=== PATIENT | male | born 1950 | race Caucasian/White ===

== ENCOUNTER 2017-03-17 13:42 | Inpatient (IN) | payer MEDICARE, OTHER ==
[2017-03-17] MEDS ORDERED: IPRATROPIUM-ALBUTEROL 3 ML NEB INHALATION PRN (16:17)
[2017-03-17] MEDS ORDERED: PROMETHAZ-COD 6.25-10 MG/5 ML 5 ML CUP PO PRN (16:19)
[2017-03-17 16:59] LABS: Basophils # (A) 0.2 k/uL (0-0.2); Basophils % (A) 2 %; Eosinophils # (A) 0.7 k/uL (0-0.7); Eosinophils % (A) 7 %; HCT 46.7 % (39.0-53.0); HGB 15.2 gm/dL (13.0-17.5); Lymphocytes # (A) 1.4 k/uL (1.0-4.8); Lymphocytes % (A) 15 %; MCH 30.3 pg (25.0-35.0); MCHC 32.5 g/dL (31.0-37.0); MCV 93.1 fL (80.0-100.0); Monocytes # (A) 0.8 k/uL (0-1.0); Monocytes % (A) 9 %; Neutrophils # (A) 5.9 k/uL (1.3-7.7); Neutrophils % (A) 64 %; Platelet Count 266 k/uL (150-450); RBC 5.02 m/uL (4.30-5.90); RDW 13.1 % (11.5-15.5); WBC 9.3 k/uL (3.8-10.6)
[2017-03-17 17:15] LABS: ALT 41 U/L (21-72); AST 24 U/L (17-59); Albumin 4.2 g/dL (3.5-5.0); Alkaline Phosphatase 118 U/L (38-126); Anion Gap 10 mmol/L; Blood Urea Nitrogen 16 mg/dL (9-20); Calcium 9.5 mg/dL (8.4-10.2); Carbon Dioxide 28 mmol/L (22-30); Chloride 102 mmol/L (98-107); Glucose 119 mg/dL (74-99); Potassium 4.4 mmol/L (3.5-5.1); Sodium 140 mmol/L (137-145); Total Protein 6.4 g/dL (6.3-8.2)
[2017-03-17] MEDS: INSULIN ASPART 100 UNIT/ML 1 ML 10 ML VIAL SQ SCH ×2 (17:36→21:17)
[2017-03-17] MEDS: AZITHROMYCIN 500 MG TAB PO SCH (18:02)
[2017-03-17] MEDS: cefTRIAXone IN SWFI 1,000 MG/10 ML SYRINGE IVP SCH (18:02)
[2017-03-17] MEDS: metFORMIN 500 MG TAB PO SCH (18:02)
[2017-03-17] MEDS: methylPREDNISolone SOD SUCCI 125 MG/2 ML VIAL IV SCH (18:02)
[2017-03-17] MEDS: IPRATROPIUM-ALBUTEROL 3 ML NEB INHALATION SCH (19:23)
[2017-03-17] MEDS: SYMBICORT 160-4.5 MCG INHALER INHALATION SCH (19:23)
[2017-03-17 21:07] LABS: Glucose,Whole Blood 229 mg/dL (75-99)
[2017-03-17] MEDS: FLUTICASONE 50MCG/SPRAY NASAL 16GM EA NOSTRIL SCH (21:16)
[2017-03-17] MEDS: MONTELUKAST 10 MG TAB PO SCH (21:16)
[2017-03-18] MEDS: methylPREDNISolone SOD SUCCI 125 MG/2 ML VIAL IV SCH ×2 (00:36→05:57)
[2017-03-18 04:35] LABS: Hemoglobin A1C 7.7 % (4.0-6.0)
[2017-03-18] MEDS: IPRATROPIUM-ALBUTEROL 3 ML NEB INHALATION SCH ×4 (06:12→19:58)
[2017-03-18 07:30] LABS: Glucose,Whole Blood 256 mg/dL (75-99)
[2017-03-18] MEDS: SYMBICORT 160-4.5 MCG INHALER INHALATION SCH ×2 (08:18→19:58)
[2017-03-18] MEDS: metFORMIN 500 MG TAB PO SCH ×2 (08:23→17:34)
[2017-03-18] MEDS: LORATADINE 10 MG TAB PO SCH (08:23)
[2017-03-18] MEDS: PANTOPRAZOLE 40 MG TABLET PO SCH (08:23)
[2017-03-18] MEDS: FLUTICASONE 50MCG/SPRAY NASAL 16GM EA NOSTRIL SCH ×2 (08:24→20:51)
[2017-03-18] MEDS: INSULIN ASPART 100 UNIT/ML 1 ML 10 ML VIAL SQ SCH ×4 (08:26→20:51)
[2017-03-18] MEDS: ENOXAPARIN 40 MG/0.4 ML SYRINGE SQ SCH (08:28)
[2017-03-18] MEDS: cefTRIAXone IN SWFI 1,000 MG/10 ML SYRINGE IVP SCH (08:45)
--- NOTE | 2017-03-18 10:21 | XR ---
EXAMINATION TYPE: XR chest 2V DATE OF EXAM: 03/18/2017 COMPARISON: None HISTORY: 67 year-old male shortness of breath, persistent cough TECHNIQUE: Frontal and lateral views FINDINGS: The cardiomediastinal silhouette, aorta, and pulmonary vasculature are within normal limits. There ar e strandy bibasilar densities and mild hyperinflation. No franklin consolidation or pleural effusion. AC DF hardware. IMPRESSION: Strandy bibasilar areas of atelectasis. Otherwise, no acute process seen.
--- NOTE | 2017-03-18 11:58 | P.DS ---
Providers Date of admission: 03/17/17 14:52 Attending physician: Germania Cisneros Consults: 03/17/17 16:13 Consult Physician Routine Consulting Provider: Maximo Chiang Consult Reason/Comments: acute exacerbation of bronchial asthma Do you want consulting provider notified?: Already Contacted Primary care physician: Stated None Hospital Course: Please refer to my HPI Plan - Discharge Summary Discharge Rx Participant: No New Discharge Prescriptions: New predniSONE 10 mg PO DAILY #30 tab Continue Cetirizine HCl 20 mg PO DAILY Budesonide/Formoterol Fumarate [Symbicort 160-4.5 Mcg Inhaler] 2 puff INHALATION RT-BID Fluticasone Nasal [place] [Flonase Nasal [place]] 2 spr EA NOSTRIL BID Montelukast [Singulair] 10 mg PO DAILY Promethaz-Cod 6.25-10 mg/5 ml [Phenergan with Codeine] 5 ml PO Q6HR PRN PRN Reason: Cough Benzocaine [Anbesol] 1 applic MUCOUS MEM Q4-6H PRN PRN Reason: Pain guaiFENesin 200 mg PO BID Ipratropium Nebulized [Atrovent Nebulized] 0.5 mg INHALATION RT-Q6H PRN PRN Reason: Shortness Of Breath Albuterol Nebulized [Ventolin Nebulized] 2.5 mg INHALATION RT-Q6H PRN PRN Reason: Shortness Of Breath Acetaminophen Tab [Tylenol] 1,000 mg PO Q4-6H PRN PRN Reason: Pain Changed metFORMIN HCL [Glucophage] 1,000 mg PO BID #0 Discharge Medication List Budesonide/Formoterol Fumarate [Symbicort 160-4.5 Mcg Inhaler] 2 puff INHALATION RT-BID 06/20/15 [History] Cetirizine HCl 20 mg PO DAILY 06/20/15 [History] Fluticasone Nasal [place] [Flonase Nasal [place]] 2 spr EA NOSTRIL BID 06/20/15 [ History] Acetaminophen Tab [Tylenol] 1,000 mg PO Q4-6H PRN 03/17/17 [History] Albuterol Nebulized [Ventolin Nebulized] 2.5 mg INHALATION RT-Q6H PRN 03/17/17 [ History] Benzocaine [Anbesol] 1 applic MUCOUS MEM Q4-6H PRN 03/17/17 [History] Ipratropium Nebulized [Atrovent Nebulized] 0.5 mg INHALATION RT-Q6H PRN [History] Montelukast [Singulair] 10 mg PO DAILY 03/17/17 [History] Promethaz-Cod 6.25-10 mg/5 ml [Phenergan with Codeine] 5 ml PO Q6HR PRN [History] guaiFENesin 200 mg PO BID 03/17/17 [History] metFORMIN HCL [Glucophage] 1,000 mg PO BID #0 03/18/17 [Rx] predniSONE 10 mg PO DAILY #30 tab 03/18/17 [Rx] Discharge Disposition: HOME SELF-CARE
--- NOTE | 2017-03-18 11:58 | P.HPIM ---
History of Present Illness 67-year-old gentleman with known history of asthma without any smoking history is admitted because of significant bronchitis and wheezing patient is still wheezing although saturating well even upon ambulation. Patient is on systemic steroids which will be continued and we will cut down the IV steroid dosing and frequency because of his uncontrolled blood sugars patient was recently diagnosed with a type 1 diabetes mellitus patient is on 500 mg twice a day of metformin which will be increased 1000 g twice a day will leave the addition of discharge to pulmonary. Patient is a direct admit from Dr. Collier's office because of significant wheezing on exam and hypoxemia which improved significant compared to yesterday. Patient was started on Rocephin and azithromycin although there is no clear-cut evidence of pneumonia patient does have bilateral atelectasis. Patient denied any fever chills. Denied any nausea vomiting patient is feeling much better Review of Systems REVIEW OF SYSTEMS: CONSTITUTIONAL: No fever, no malaise, no fatigue. HEENT: No recent visual problems or hearing problems. Denied any sore throat. CARDIOVASCULAR: No chest pain, orthopnea, PND, no palpitations, no syncope. PULMONARY: As mentioned in HPI GASTROINTESTINAL: No diarrhea, no nausea, no vomiting, no abdominal pain. Normoactive bowel sounds. NEUROLOGICAL: No headaches, no weakness, no numbness. HEMATOLOGICAL: Denies any bleeding or petechiae. GENITOURINARY: Denies any burning micturition, frequency, or urgency. MUSCULOSKELETAL/RHEUMATOLOGICAL: Denies any joint pain, swelling, or any muscle pain. ENDOCRINE: Denies any polyuria or polydipsia. The rest of the 14-point review of systems is negative. Past Medical History Past Medical History: Asthma, COPD, Diabetes Mellitus, Osteoarthritis (OA) Additional Past Medical History / Comment(s): hx colon polyps bening, diverticulosis,numbness/tingling lt arm and fingers, sciatica lewis legs, chronic lower back pain,when in service had exercise induced pvc,when in the service had exposure to agent orange, asbestos, shingles 2007, "has pocket in throat area from caging used in cervical sx-thngs tend to get stuck" History of Any Multi-Drug Resistant Organisms: None Reported Past Surgical History: Appendectomy, Cholecystectomy Additional Past Surgical History / Comment(s): cervical x2(cage c3-c6,c6-7), sinus x5(major cleanouts and polpys removed). colonoscopy/polypectomy(benign) Past Anesthesia/Blood Transfusion Reactions: No Reported Reaction Additional Past Anesthesia/Blood Transfusion Reaction / Comment(s): states "has pocket in throat area from cage insertion for cervical surgery and. sometimes things get stuck." Smoking Status: Former smoker - Past Family History Mother Family Medical History: Cancer Additional Family Medical History / Comment(s): gallbladder ca mets liver Father Family Medical History: Cancer Additional Family Medical History / Comment(s): bladder Medications and Allergies Home Medications Medication Instructions Recorded Confirmed Type Budesonide/Formoterol Fumarate 2 puff INHALATION RT-BID 06/20/15 03/17/17 History [Symbicort 160-4.5 Mcg Inhaler] Cetirizine HCl 20 mg PO DAILY 06/20/15 03/17/17 History Fluticasone Nasal [place] [Flonase 2 spr EA NOSTRIL BID 06/20/15 03/17/17 History Nasal [place]] Acetaminophen Tab [Tylenol] 1,000 mg PO Q4-6H PRN 03/17/17 03/17/17 History Albuterol Nebulized [Ventolin 2.5 mg INHALATION RT-Q6H PRN 03/17/17 03/17/17 History Nebulized] Benzocaine [Anbesol] 1 applic MUCOUS MEM Q4-6H PRN 03/17/17 03/17/17 History Ipratropium Nebulized [Atrovent 0.5 mg INHALATION RT-Q6H PRN 03/17/17 03/17/17 History Nebulized] Montelukast [Singulair] 10 mg PO DAILY 03/17/17 03/17/17 History Promethaz-Cod 6.25-10 mg/5 ml 5 ml PO Q6HR PRN 03/17/17 03/17/17 History [Phenergan with Codeine] guaiFENesin 200 mg PO BID 03/17/17 03/17/17 History metFORMIN HCL [Glucophage] 1,000 mg PO BID #0 03/18/17 03/17/17 Rx predniSONE 10 mg PO DAILY #30 tab 03/18/17 Rx Allergies Allergy/AdvReac Type Severity Reaction Status Date / Time gabapentin AdvReac Hallucinati Verified 03/17/17 16:17 ons Influenza Virus Vaccines AdvReac states "I Verified 03/17/17 16:17 get the flu" Physical Exam Vitals: Vital Signs Temp Pulse Pulse Resp BP Pulse Ox 03/18/17 11:45 87 03/18/17 11:32 87 03/18/17 10:13 98.5 F 87 20 143/82 97 03/18/17 09:56 87 20 03/18/17 07:26 87 20 03/18/17 07:00 97.5 F L 96 18 142/87 92 L 03/18/17 06:25 80 03/18/17 06:12 76 03/17/17 22:22 98.5 F 87 20 143/80 93 L 03/17/17 19:34 84 03/17/17 19:23 84 Intake and Output 03/17/17 03/18/17 03/18/17 22:59 06:59 14:59 Intake Total 250 240 Balance 250 240 Intake: Oral 250 240 Other: Voiding Method Toilet # Voids 2 2 2 Weight 92.986 kg 92.986 kg Patient Weight 03/19/17 06:59 Weight 92.986 kg PHYSICAL EXAMINATION: GENERAL: The patient is alert and oriented x3, not in any acute distress. Well developed, well nourished. HEENT: Pupils are round and equally reacting to light. EOMI. No scleral icterus. No conjunctival pallor. Normocephalic, atraumatic. No pharyngeal erythema. No thyromegaly. CARDIOVASCULAR: S1 and S2 present. No murmurs, rubs, or gallops. PULMONARY: Coarse breath sounds significant expiratory wheezing. ABDOMEN: Soft, nontender, nondistended, normoactive bowel sounds. No palpable organomegaly. MUSCULOSKELETAL: No joint swelling or deformity. EXTREMITIES: No cyanosis, clubbing, or pedal edema. NEUROLOGICAL: Gross neurological examination did not reveal any focal deficits. SKIN: No rashes. Results CBC & Chem 7: 03/17/17 16:30 03/17/17 16:30 Labs: Abnormal Lab Results - Last 24 Hours (Table) 03/17/17 03/17/17 03/17/17 Range/Units 16:30 16:30 21:05 Glucose 119 H (74-99) mg/dL POC Glucose (mg/dL) 229 H (75-99) mg/dL Hemoglobin A1c 7.7 H (4.0-6.0) % 03/18/17 Range/Units 07:20 Glucose (74-99) mg/dL POC Glucose (mg/dL) 256 H (75-99) mg/dL Hemoglobin A1c (4.0-6.0) % Thrombosis Risk Factor Assmnt - Choose All That Apply Any of the Below Risk Factors Present?: Yes Each Factor Represents 1 point: Abnormal pulmonary function (COPD) Other Risk Factors: Yes Each Risk Factor Represents 2 Points: Age 61-74 years Other congenital or acquired thrombophilia - If yes, enter type in comment: No Thrombosis Risk Factor Assessment Total Risk Factor Score: 3 Thrombosis Risk Factor Assessment Level: Moderate Risk Assessment and Plan Plan: -Acute asthma exacerbation: Patient does have status asthmaticus it appears to have chronic persistent asthma moderate. Patient will be continue on systemic steroids inhalational treatments antibiotic regimen as per pulmonary. -Type 2 diabetes mellitus uncontrolled blood sugars secondary to systemic steroids dose of which will be decreased and the patient metformin dose will be increased as his hemoglobin A1c 7.7. Patient will be on sliding scale insulin here. -Degenerative cervical spine disease and patient underwent surgery for that.
[2017-03-18 12:39] LABS: Glucose,Whole Blood 186 mg/dL (75-99)
--- NOTE | 2017-03-18 15:31 | P.CNPUL ---
History of Present Illness Consult date: 03/18/17 Requesting physician: Aniket Daniel Reason for consult: dyspnea, cough Chief complaint: Dyspnea, cough, wheezing. History of present illness: Rudy is a 67-year-old white male patient that sees Dr. Chiang for his history of bronchial asthma, seasonal ALLERGIC rhinitis, chronic sinus disease with previous sinus surgeries, presented to the pulmonary office on 03/17/2017 with complaints of coughing, wheezing, shortness of breath. Cough was productive with yellow phlegm, no fever, no chills, no hemoptysis, no chest pain. He had been on maintenance dose of prednisone 5 mg daily previously for the management of his chronic bronchial asthma, however that was discontinued related to poor healing skin ulcers. In the office, patient was severely tight and wheezy, he was given a dose of IM Depo-Medrol 80 mg, and updraft treatment. Chest x-ray was taken that showed no evidence of pneumonia, and some chronic scarring of the left lung base. Patient symptoms did not improve after the updraft treatment, and patient was sent over to the hospital for admission. Other history includes diabetes mellitus, degenerative cervical spine disease, former smoker, diverticulosis, neuropathy. Review of Systems All systems: negative Constitutional: Denies chills, Denies fever Eyes: denies blurred vision, denies pain Ears, nose, mouth and throat: Denies headache, Denies sore throat Cardiovascular: Denies chest pain, Denies shortness of breath Respiratory: Denies cough Gastrointestinal: Denies abdominal pain, Denies diarrhea, Denies nausea, Denies vomiting Musculoskeletal: Denies myalgias Integumentary: Denies pruritus, Denies rash Neurological: Denies numbness, Denies weakness Psychiatric: Denies anxiety, Denies depression Endocrine: Denies fatigue, Denies weight change Past Medical History Past Medical History: Asthma, COPD, Diabetes Mellitus, Osteoarthritis (OA) Additional Past Medical History / Comment(s): hx colon polyps bening, diverticulosis,numbness/tingling lt arm and fingers, sciatica lewis legs, chronic lower back pain,when in service had exercise induced pvc,when in the service had exposure to agent orange, asbestos, shingles 2007, "has pocket in throat area from caging used in cervical sx-thngs tend to get stuck" History of Any Multi-Drug Resistant Organisms: None Reported Past Surgical History: Appendectomy, Cholecystectomy Additional Past Surgical History / Comment(s): cervical x2(cage c3-c6,c6-7), sinus x5(major cleanouts and polpys removed). colonoscopy/polypectomy(benign) Past Anesthesia/Blood Transfusion Reactions: No Reported Reaction Additional Past Anesthesia/Blood Transfusion Reaction / Comment(s): states "has pocket in throat area from cage insertion for cervical surgery and. sometimes things get stuck." Smoking Status: Former smoker - Past Family History Mother Family Medical History: Cancer Additional Family Medical History / Comment(s): gallbladder ca mets liver Father Family Medical History: Cancer Additional Family Medical History / Comment(s): bladder Medications and Allergies Home Medications Medication Instructions Recorded Confirmed Type Budesonide/Formoterol Fumarate 2 puff INHALATION RT-BID 06/20/15 03/17/17 History [Symbicort 160-4.5 Mcg Inhaler] Cetirizine HCl 20 mg PO DAILY 06/20/15 03/17/17 History Fluticasone Nasal [place] [Flonase 2 spr EA NOSTRIL BID 06/20/15 03/17/17 History Nasal [place]] Acetaminophen Tab [Tylenol] 1,000 mg PO Q4-6H PRN 03/17/17 03/17/17 History Albuterol Nebulized [Ventolin 2.5 mg INHALATION RT-Q6H PRN 03/17/17 03/17/17 History Nebulized] Benzocaine [Anbesol] 1 applic MUCOUS MEM Q4-6H PRN 03/17/17 03/17/17 History Ipratropium Nebulized [Atrovent 0.5 mg INHALATION RT-Q6H PRN 03/17/17 03/17/17 History Nebulized] Montelukast [Singulair] 10 mg PO DAILY 03/17/17 03/17/17 History Promethaz-Cod 6.25-10 mg/5 ml 5 ml PO Q6HR PRN 03/17/17 03/17/17 History [Phenergan with Codeine] guaiFENesin 200 mg PO BID 03/17/17 03/17/17 History metFORMIN HCL [Glucophage] 1,000 mg PO BID #0 03/18/17 03/17/17 Rx predniSONE 10 mg PO DAILY #30 tab 03/18/17 Rx Allergies Allergy/AdvReac Type Severity Reaction Status Date / Time gabapentin AdvReac Hallucinati Verified 03/17/17 16:17 ons Influenza Virus Vaccines AdvReac states "I Verified 03/17/17 16:17 get the flu" Physical Exam Vitals: Vital Signs Temp Pulse Pulse Resp BP Pulse Ox 03/18/17 11:45 87 03/18/17 11:32 87 03/18/17 10:13 98.5 F 87 20 143/82 97 03/18/17 09:56 87 20 03/18/17 07:26 87 20 03/18/17 07:00 97.5 F L 96 18 142/87 92 L 03/18/17 06:25 80 03/18/17 06:12 76 03/17/17 22:22 98.5 F 87 20 143/80 93 L 03/17/17 19:34 84 03/17/17 19:23 84 Intake and Output 03/18/17 03/18/17 03/18/17 06:59 14:59 22:59 Intake Total 250 240 Balance 250 240 Intake: Oral 250 240 Other: Voiding Method Toilet # Voids 2 2 Weight 92.986 kg Patient Weight 03/19/17 06:59 Weight 92.986 kg GENERAL EXAM: Alert, active, comfortable in no apparent distress. HEAD: Normocephalic/atraumatic. EYES: Normal reaction of pupils, equal size. Conjunctiva pink, sclera white. NOSE: Clear with pink turbinates. THROAT: No erythema or exudates. NECK: No masses, no JVD, no thyroid enlargement, no adenopathy. CHEST: No chest wall deformity. Symmetrical expansion. LUNGS: Equal air entry with scattered expiratory wheezing CVS: Regular rate and rhythm, normal S1 and S2, no gallops, no murmurs, no rubs ABDOMEN: Soft, nontender. No hepatosplenomegaly, normal bowel sounds, no guarding or rigidity. EXTREMITIES: No clubbing, no edema, no cyanosis, 2+ pulses and upper and lower extremities. MUSCULOSKELETAL: Muscle strength and tone normal. SPINE: No scoliosis or deformity SKIN: No rashes CENTRAL NERVOUS SYSTEM: Alert and oriented -3. No focal deficits, tone is normal in all 4 extremities. PSYCHIATRIC: Alert and oriented -3. Appropriate affect. Intact judgment and insight. Results - Laboratory Findings CBC and BMP: 03/17/17 16:30 03/17/17 16:30 Abnormal lab findings: Abnormal Labs 03/17/17 03/17/17 03/17/17 16:30 16:30 21:05 Glucose 119 H POC Glucose (mg/dL) 229 H Hemoglobin A1c 7.7 H 03/18/17 03/18/17 07:20 12:05 Glucose POC Glucose (mg/dL) 256 H 186 H Hemoglobin A1c - Diagnostic Findings Chest x-ray: report reviewed Assessment and Plan Plan: Assessment: #1. Acute severe exacerbation of mild persistent asthma, with tracheobronchitis #2. Chronic sinusitis #3. Seasonal ALLERGIC rhinitis #4. Diabetes mellitus #5. Neuropathy #6. Osteoarthritis #7. Degenerative cervical disc disease Plan: Patient is feeling better compared to yesterday, still has some scattered wheezes, but reports improvement in his symptoms. His vital signs are stable, he is on room air with O2 sat 97%. His chest x-ray was reviewed, shows strandy bibasilar areas of atelectasis, but no acute process was seen. He has improved significantly on IV Solu-Medrol, Rocephin and Zithromax, nebulized treatments. Could be considered for discharge home, will need follow-up with Dr. Chiang in the office I performed a history & physical examination of the patient and discussed their management with my nurse practitioner, Mackenzie Dimas. I reviewed the nurse practitioner's note and agree with the documented findings and plan of care. Lung sounds are positive for scattered wheezes throughout the lung cadena. The findings and the impression was discussed with the patient. I attest to the documentation by the nurse practitioner. Time with Patient: Greater than 30
[2017-03-18] MEDS: AZITHROMYCIN 500 MG TAB PO SCH (17:34)
[2017-03-18 17:56] LABS: Glucose,Whole Blood 227 mg/dL (75-99)
[2017-03-18 20:31] LABS: Glucose,Whole Blood 236 mg/dL (75-99)
[2017-03-18] MEDS: MONTELUKAST 10 MG TAB PO SCH (20:50)
[2017-03-18] MEDS: methylPREDNISolone SOD SUCCI 40 MG/ML 1 ML VIAL IV SCH (20:52)
[2017-03-19] MEDS: SYMBICORT 160-4.5 MCG INHALER INHALATION SCH (07:10)
[2017-03-19] MEDS: IPRATROPIUM-ALBUTEROL 3 ML NEB INHALATION SCH (07:10)
[2017-03-19 07:40] VITALS: BP 133/79; PULSE 93; RESP 19; TEMP 96.9
[2017-03-19 07:50] LABS: Glucose,Whole Blood 177 mg/dL (75-99)
[2017-03-19] MEDS: LORATADINE 10 MG TAB PO SCH (08:07)
[2017-03-19] MEDS: ENOXAPARIN 40 MG/0.4 ML SYRINGE SQ SCH (08:07)
[2017-03-19] MEDS: PANTOPRAZOLE 40 MG TABLET PO SCH (08:07)
[2017-03-19] MEDS: INSULIN ASPART 100 UNIT/ML 1 ML 10 ML VIAL SQ SCH (08:07)
[2017-03-19] MEDS: metFORMIN 500 MG TAB PO SCH (08:07)
[2017-03-19] MEDS: FLUTICASONE 50MCG/SPRAY NASAL 16GM EA NOSTRIL SCH (08:15)
--- NOTE | 2017-03-19 08:16 | P.DS ---
Providers Date of admission: 03/17/17 14:52 Attending physician: Germania Cisneros Consults: 03/17/17 16:13 Consult Physician Routine Consulting Provider: Maximo Chiang Reason/Comments: acute exacerbation of bronchial asthma Do you want consulting provider notified?: Already Contacted Primary care physician: Stated None Hospital Course: Patient was admitted for asthma exacerbation. Pulmonology will decide about antibiotics regarding his bronchitis. PHYSICAL EXAMINATION: GENERAL: The patient is alert and oriented x3, not in any acute distress. Well developed, well nourished. HEENT: Pupils are round and equally reacting to light. EOMI. No scleral icterus. No conjunctival pallor. Normocephalic, atraumatic. No pharyngeal erythema. No thyromegaly. CARDIOVASCULAR: S1 and S2 present. No murmurs, rubs, or gallops. PULMONARY: Wheezing improved patient still has some coarse breath sounds ABDOMEN: Soft, nontender, nondistended, normoactive bowel sounds. No palpable organomegaly. MUSCULOSKELETAL: No joint swelling or deformity. EXTREMITIES: No cyanosis, clubbing, or pedal edema. NEUROLOGICAL: Gross neurological examination did not reveal any focal deficits. SKIN: No rashes. Assessment and Plan Plan: -Acute asthma exacerbation: Patient does have status asthmaticus it appears to have chronic persistent asthma moderate. -Type 2 diabetes mellitus uncontrolled blood sugars secondary to systemic steroids dose of which will be decreased and the patient metformin dose will be increased as his hemoglobin A1c 7.7. -Degenerative cervical spine disease and patient underwent surgery for that. Plan - Discharge Summary Discharge Rx Participant: No New Discharge Prescriptions: New predniSONE 10 mg PO DAILY #30 tab Continue Cetirizine HCl 20 mg PO DAILY Budesonide/Formoterol Fumarate [Symbicort 160-4.5 Mcg Inhaler] 2 puff INHALATION RT-BID Fluticasone Nasal [place] [Flonase Nasal [place]] 2 spr EA NOSTRIL BID Montelukast [Singulair] 10 mg PO DAILY Promethaz-Cod 6.25-10 mg/5 ml [Phenergan with Codeine] 5 ml PO Q6HR PRN PRN Reason: Cough Benzocaine [Anbesol] 1 applic MUCOUS MEM Q4-6H PRN PRN Reason: Pain guaiFENesin 200 mg PO BID Ipratropium Nebulized [Atrovent Nebulized] 0.5 mg INHALATION RT-Q6H PRN PRN Reason: Shortness Of Breath Albuterol Nebulized [Ventolin Nebulized] 2.5 mg INHALATION RT-Q6H PRN PRN Reason: Shortness Of Breath Acetaminophen Tab [Tylenol] 1,000 mg PO Q4-6H PRN PRN Reason: Pain Changed metFORMIN HCL [Glucophage] 1,000 mg PO BID #0 Discharge Medication List Budesonide/Formoterol Fumarate [Symbicort 160-4.5 Mcg Inhaler] 2 puff INHALATION RT-BID 06/20/15 [History] Cetirizine HCl 20 mg PO DAILY 06/20/15 [History] Fluticasone Nasal [place] [Flonase Nasal [place]] 2 spr EA NOSTRIL BID 06/20/15 [ History] Acetaminophen Tab [Tylenol] 1,000 mg PO Q4-6H PRN 03/17/17 [History] Albuterol Nebulized [Ventolin Nebulized] 2.5 mg INHALATION RT-Q6H PRN 03/17/17 [ History] Benzocaine [Anbesol] 1 applic MUCOUS MEM Q4-6H PRN 03/17/17 [History] Ipratropium Nebulized [Atrovent Nebulized] 0.5 mg INHALATION RT-Q6H PRN [History] Montelukast [Singulair] 10 mg PO DAILY 03/17/17 [History] Promethaz-Cod 6.25-10 mg/5 ml [Phenergan with Codeine] 5 ml PO Q6HR PRN [History] guaiFENesin 200 mg PO BID 03/17/17 [History] metFORMIN HCL [Glucophage] 1,000 mg PO BID #0 03/18/17 [Rx] predniSONE 10 mg PO DAILY #30 tab 03/18/17 [Rx] Patient Instructions/Handouts: Prednisone (By mouth), Asthma (DC) Discharge Disposition: HOME SELF-CARE
[2017-03-19] MEDS: methylPREDNISolone SOD SUCCI 40 MG/ML 1 ML VIAL IV SCH (09:29)
[2017-03-19] MEDS: cefTRIAXone IN SWFI 1,000 MG/10 ML SYRINGE IVP SCH (09:29)
--- NOTE | 2017-03-19 13:06 | P.PN ---
Subjective Progress Note Date: 03/19/17 Principal diagnosis: Acute severe exacerbation of mild persistent asthma with tracheobronchitis Rudy is a 67-year-old white male patient that sees Dr. Chiang for his history of bronchial asthma, seasonal ALLERGIC rhinitis, chronic sinus disease with previous sinus surgeries, presented to the pulmonary office on 03/17/2017 with complaints of coughing, wheezing, shortness of breath. Cough was productive with yellow phlegm, no fever, no chills, no hemoptysis, no chest pain. He had been on maintenance dose of prednisone 5 mg daily previously for the management of his chronic bronchial asthma, however that was discontinued related to poor healing skin ulcers. In the office, patient was severely tight and wheezy, he was given a dose of IM Depo-Medrol 80 mg, and updraft treatment. Chest x-ray was taken that showed no evidence of pneumonia, and some chronic scarring of the left lung base. Patient symptoms did not improve after the updraft treatment, and patient was sent over to the hospital for admission. Other history includes diabetes mellitus, degenerative cervical spine disease, former smoker, diverticulosis, neuropathy. On 03/19/2017 patient seen in follow-up on medical surgical floor, reports improvement breathing, lung sounds are still positive for some scattered wheezes , but good air entry bilaterally, and this is improved from yesterday's exam. On room air with O2 sat at 94%. Vitals are stable, afebrile. Patient has been ambulating in the room tolerating activity well. From pulmonary standpoint he is stable for discharge home today, on outpatient course of Ceftin, prednisone taper and his maintenance inhalers and nebulized treatments. Follow-up with Dr. Chiang in the office in one week. Objective - Vital Signs Vital signs: Vital Signs Temp 96.9 F L 03/19/17 07:38 Pulse 93 03/19/17 09:59 Resp 19 03/19/17 09:59 BP 133/79 03/19/17 07:38 Pulse Ox 94 L 03/19/17 07:38 Intake & Output 03/18/17 03/19/17 03/19/17 18:59 06:59 18:59 Intake Total 880 1830 Balance 880 1830 Weight 92.986 kg Intake: Oral 880 1830 Other: Voiding Method Toilet Toilet Toilet # Voids 2 2 - Exam GENERAL EXAM: Alert, active, comfortable in no apparent distress. HEAD: Normocephalic/atraumatic. EYES: Normal reaction of pupils, equal size. Conjunctiva pink, sclera white. NOSE: Clear with pink turbinates. THROAT: No erythema or exudates. NECK: No masses, no JVD, no thyroid enlargement, no adenopathy. CHEST: No chest wall deformity. Symmetrical expansion. LUNGS: Equal air entry with scattered expiratory wheezing CVS: Regular rate and rhythm, normal S1 and S2, no gallops, no murmurs, no rubs ABDOMEN: Soft, nontender. No hepatosplenomegaly, normal bowel sounds, no guarding or rigidity. EXTREMITIES: No clubbing, no edema, no cyanosis, 2+ pulses and upper and lower extremities. MUSCULOSKELETAL: Muscle strength and tone normal. SPINE: No scoliosis or deformity SKIN: No rashes CENTRAL NERVOUS SYSTEM: Alert and oriented -3. No focal deficits, tone is normal in all 4 extremities. PSYCHIATRIC: Alert and oriented -3. Appropriate affect. Intact judgment and insight. - Labs CBC & Chem 7: 03/17/17 16:30 03/17/17 16:30 Labs: Abnormal Lab Results - Last 24 Hours (Table) 03/18/17 03/18/17 03/19/17 Range/Units 17:33 20:23 07:37 POC Glucose (mg/dL) 227 H 236 H 177 H (75-99) mg/dL Microbiology - Last 24 Hours (Table) 03/18/17 06:30 Gram Stain - Preliminary Sputum Assessment and Plan Plan: Assessment: #1. Acute severe exacerbation of mild persistent asthma, with tracheobronchitis , improved #2. Chronic sinusitis #3. Seasonal ALLERGIC rhinitis #4. Diabetes mellitus #5. Neuropathy #6. Osteoarthritis #7. Degenerative cervical disc disease Plan: Patient continues to improve, good air entry noted bilaterally, there is still some residual wheezing. Tolerating ambulation. His vital signs are stable, he is on room air with O2 sat 97%. His chest x-ray was reviewed, shows strandy bibasilar areas of atelectasis, but no acute process was seen. He has improved significantly on IV Solu-Medrol, Rocephin and Zithromax, nebulized treatments. From pulmonary standpoint, he is clear for discharge home on prednisone taper, and outpatient course of oral Ceftin, continue his maintenance inhalers and DuoNeb, will need an appointment with Dr. Chiang in one week. I performed a history & physical examination of the patient and discussed their management with my nurse practitioner, Mackenzie Dimas. I reviewed the nurse practitioner's note and agree with the documented findings and plan of care. Lung sounds are positive for scattered wheezes throughout the lung cadena. The findings and the impression was discussed with the patient. I attest to the documentation by the nurse practitioner. Time with Patient: Less than 30
== END 2017-03-19 10:46 | disposition home or self-care (01) | DRG 203 ==
LOC: 5MS5E 14:52
PROVIDERS: ADMIT Internal Medicine; ATTEND Internal Medicine
DX: J45.42 Moderate persistent asthma with status asthmaticus (principal); E11.42 Type 2 diabetes mellitus with diabetic polyneuropathy; J44.9 Chronic obstructive pulmonary disease, unspecified; E11.65 Type 2 diabetes mellitus with hyperglycemia; M50.30 Other cervical disc degeneration, unspecified cervical region; M19.90 Unspecified osteoarthritis, unspecified site; T38.0X5A Adverse effect of glucocorticoids and synthetic analogues, initial encounter; J32.9 Chronic sinusitis, unspecified; Z88.7 Allergy status to serum and vaccine; Z88.8 Allergy status to other drugs, medicaments and biological substances; Z79.899 Other long term (current) drug therapy; Z79.84 Long term (current) use of oral hypoglycemic drugs; Z79.51 Long term (current) use of inhaled steroids; Z80.8 Family history of malignant neoplasm of other organs or systems; Z79.52 Long term (current) use of systemic steroids; Z80.0 Family history of malignant neoplasm of digestive organs; Z87.891 Personal history of nicotine dependence; Z90.89 Acquired absence of other organs; Z90.49 Acquired absence of other specified parts of digestive tract; Z86.010 Personal history of colon polyps; Z86.19 Personal history of other infectious and parasitic diseases; Z87.19 Personal history of other diseases of the digestive system
CPT/HCPCS: 71046; 80053; 83036; 85025; 87070; 87205; 94640; 96372; 99215

== ENCOUNTER 2017-04-29 09:58 | Day surgery (SDC) | payer MEDICARE, OTHER ==
[2017-04-26 09:09] VITALS: BMI 30.9
[~2017-04-29 09:58] MED LIST: DEXAMETHASONE SOD PHOSPHATE 4 MG/ML 1 ML VIAL IV ONE; FAMOTIDINE 20 MG/2 ML VIAL IV ONE; LACTATED RINGERS 1,000 ML IV SCH; MORPHINE SULFATE 4 MG/ML SYRINGE IV PRN; ceFAZolin IN SWFI 2 GM/20 ML SYRINGE IVP ONE; fentaNYL (PF) 50 MCG/ML 2 ML AMP IV PRN
[2017-04-29] MEDS: OXYMETAZOLINE 0.05% NASL SPRAY 1 SPRAY BOTTLE NASAL ONE ×5 (11:10→11:30)
[2017-04-29 11:19] VITALS: RESP 16
[2017-04-29 11:30] LABS: Glucose,Whole Blood 119 mg/dL (75-99)
[2017-04-29] MEDS ORDERED: ePHEDrine SULFATE/0.9% NACL/PF 50 MG/5 ML SYRINGE IV ONE (11:38)
[2017-04-29] MEDS ORDERED: PROPOFOL 10 MG/ML 20 ML VIAL IV ONE (11:38)
[2017-04-29] MEDS ORDERED: fentaNYL (PF) 50 MCG/ML 2 ML AMP ONE (11:38)
[2017-04-29] MEDS ORDERED: LIDOCAINE 1% INJ 10MG/ML (20 ML MDV) ONE (11:38)
[2017-04-29] MEDS ORDERED: MIDAZOLAM 2 MG/2 ML VIAL ONE (11:38)
[2017-04-29] MEDS ORDERED: SUCCINYLCHOLINE CHLORIDE 100 MG/5 ML SYR IV ONE (11:38)
[2017-04-29] MEDS ORDERED: PHENYLEPHRINE-0.9% NACL SYG 1 MG/10 ML SYRINGE ONE (11:38)
[2017-04-29] MEDS ORDERED: LIDOCAINE 1%-EPI 1:100,000 20 ML VIAL SQ ONE ×2 (11:59)
[2017-04-29] MEDS ORDERED: EPINEPHrine 1 MG/ML 1 ML AMP IRRIGATION ONE (11:59)
[2017-04-29] MEDS ORDERED: FLUORESCEIN STRIPS 1 MG STRIP MISCELLANE ONE (12:00)
[2017-04-29] MEDS ORDERED: LACTATED RINGERS 1,000 ML IV ONE (12:55)
--- NOTE | 2017-04-29 13:13 | P.OP ---
Date of Procedure: 04/29/17 Preoperative Diagnosis: Chronic pansinusitis with polyposis Postoperative Diagnosis: Same Procedure(s) Performed: Bilateral functional endoscopic sinus surgery with polypectomy and placement of and contour, propel mini and contour bilaterally Implants: Propel, propel mini, and contour bilaterally Anesthesia: MICHAELA Surgeon: Lucho Wood Estimated Blood Loss (ml): 20 Pathology: other (Sinonasal) Condition: stable Disposition: PACU Indications for Procedure: This patient presented to the office today with 2 years of constant sinus infections. The patient has had 5 previous surgeries by other [facility] through [facility] and another one through Dr. Connell. His sinus symptoms have worsened over the last 2 years. He has a neck plate which bothers him. 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 He was found to have chronic pansinusitis with sinonasal polyposis bilaterally. He had synechiae and closure of the maxillary sinuses and widespread scar tissue. After long discussion we decided to proceed forward with repeat visual functional endoscopic sinus surgery with placement of drug-eluting stents. All risks, benefits, and alternative therapies were discussed. Consent was obtained and all questions were answered. Operative Findings: Patient had severe bilateral maxillary sinusitis with closure of the maxillary sinuses bilaterally with scar there was a synechiae from the left septum to the inferior turbinates underwent lysis. The patient also had polyposis of the ethmoid frontal and sphenoid sinuses. He had closure of the sinuses. Widespread polyp and purulence was noted. Description of Procedure: This patient was taken to the operative room and placed in the supine position. A general inhalation anesthetic was administered to the patient by mask and subsequently intubated with a cuffed endotracheal tube by the department of anesthesia with a functioning IV line in place. The patient was monitored throughout the entire case by the department of anesthesia. The lateral nasal wall and sphenopalatine ganglion were injected with lidocaine 1% with epinephrine 1 100,000. 10 minutes were allowed wait for full vasoconstrictive effects to take place. We entered the nose with a 0 endoscope and we utilized endoscopic visualization throughout this entire procedure. The patient does not have middle and superior turbinates because it were previously removed during one of his previous surgeries. We did lyse the adhesions between the septum on the left side to the inferior turbinates and we then opened the maxillary sinuses below the inferior turbinate bilaterally with Mack's. We made a nasal antral windows under direct visualization and suction and removed the purulence and pus and polyps from the maxillary sinuses bilaterally. After the nasal antral window was opened and polyps were removed from the floor the maxillary sinuses we then identified with the superior opening should be and entered and open that area removing a large amount of scar tissue and stenotic tissue. We opened up the maxillary sinuses superiorly and we removed all the diseased tissue. We removed intranasal polyps and then continued our dissection into the ethmoid sinuses removing all ethmoid septations polyposis and diseased tissue anteriorly and posteriorly bilaterally. Complete ethmoidectomy was performed we did the same with the sphenoid sinuses by opening the sphenoid sinuses removing the diseased tissue from the sphenoid sinuses. After the sphenoid sinuses were opened explored and diseased tissue was removed with the microdebrider and endoscopic visualization we then entered the frontal sinus which was completely occluded with polypoid material. With use of an occluder balloon we passed the guidewire up into the frontal sinuses bilaterally and confirm placement with a guidewire. We then passed a balloon into the frontal sinuses we opened and ballooned the frontal sinuses under endoscopic visualization and confirmation with use of transillumination. We then ballooned open the frontal sinuses bilaterally we then irrigated the frontal sinuses bilaterally. A large amount of purulence was removed. We then entered the frontal sinuses and explore the frontal sinuses removing diseased tissue bilaterally from the frontal sinuses. After the frontal sinuses were open all sinuses were open all diseased tissue and polyps were removed we placed contour at the opening of the maxillary sinuses we placed a propel many into the frontal sinuses bilaterally and replaced a propel into the ethmoid cavities bilaterally. Excellent results were obtained. The patient tolerated this well and follow-up will be in the office in one week Saida was placed for hemostasis.
[2017-04-29 13:16] VITALS: TEMP 97.6
[2017-04-29] MEDS ORDERED: ONDANSETRON 4 MG/2 ML VIAL IVP ONE (13:42)
[2017-04-29] MEDS ORDERED: MELOXICAM 7.5 MG TAB PO SCH (14:15)
[2017-04-29 14:28] LABS: Glucose,Whole Blood 125 mg/dL (75-99)
[2017-04-29 14:52] VITALS: BP 144/77; PULSE 65
== END 2017-04-29 15:33 | disposition home or self-care (01) ==
LOC: OR 09:58
PROVIDERS: ATTEND Otolaryngology
DX: J32.4 Chronic pansinusitis (principal); J33.8 Other polyp of sinus; J34.2 Deviated nasal septum; R43.0 Anosmia; J45.909 Unspecified asthma, uncomplicated; E11.42 Type 2 diabetes mellitus with diabetic polyneuropathy; J33.9 Nasal polyp, unspecified; J98.8 Other specified respiratory disorders; M54.10 Radiculopathy, site unspecified; Z79.2 Long term (current) use of antibiotics; Z79.891 Long term (current) use of opiate analgesic; Z79.84 Long term (current) use of oral hypoglycemic drugs; Z79.52 Long term (current) use of systemic steroids; Z79.899 Other long term (current) drug therapy; Z87.891 Personal history of nicotine dependence; Z88.6 Allergy status to analgesic agent; Z88.7 Allergy status to serum and vaccine; Z88.8 Allergy status to other drugs, medicaments and biological substances
CPT/HCPCS: 0407T; 31253; 31259; 31267; 31299; 88305